=== PATIENT | female | born 1985 | race Caucasian/White ===

== ENCOUNTER 2022-09-05 18:58 | Emergency (ER) | payer OTHER, SELFPAY ==
[2022-09-05 19:10] VITALS: BP 141/96; PULSE 86; RESP 16; TEMP 36.9; O2SAT 99
--- NOTE | 2022-09-05 19:35 | ED.DENTAL ---
HPI - Dental/Oral General Chief complaint: Dental/Oral Stated complaint: tooth pain Time Seen by Provider: 09/05/22 19:35 Source: patient Mode of arrival: ambulatory Limitations: no limitations History of Present Illness HPI Narrative: 37-year-old female presents with right lower dental pain for approximately 3 weeks. Reports that her tooth broke 3 weeks ago. She had a dental appointment 2 weeks ago but she had to schedule it due to her daughter being sick. She states overnight her gums became very swollen and painful. States that she called 3 emergency dentist today but is not able to be seen. States she normally goes to [facility] in [place] Was unaware that there was a [facility] and off [facility]. All systems reviewed and negative except as noted above. Related Data Allergies Allergy/AdvReac Type Severity Reaction Status Date / Time No Known Allergies Allergy Verified 09/05/22 19:32 Review of Systems Review of Systems: CONSTITUTIONAL: Denies fever, chills, or sweats. EYES: Denies visual changes, redness, or discharge. ENT: Denies rhinorrhea, congestion, sore throat, or otalgia. Reports right lower dental pain. CARDIOVASCULAR: Denies chest pain, palpitations, or edema. RESPIRATORY: Denies cough or dyspnea. GASTROINTESTINAL: Denies abdominal pain, nausea, vomiting, or diarrhea. GENITOURINARY: Denies dysuria or hematuria. SKIN: Denies rash or itching. MUSCULOSKELETAL: Denies back pain, joint pain, or myalgia. NEUROLOGIC: Denies headache, numbness, or weakness. PSYCHIATRIC: Denies anxiety or depression. All other systems reviewed are negative, except as documented in HPI. PMFSH Comments At time of signature, agree with nursing past medical, surgical, social and family history. There is no relevant family history pertinent to the presenting complaint. Exam Narrative: GENERAL: This is a well-nourished, well-developed patient, in no apparent distress. HEAD: normocephalic, atraumatic. EYES: PERRL. Sclera clear/white. Vision is grossly intact. EARS: External ears normal NOSE: External nose normal MOUTH: tooth #3 decayed and broken down to gumline with swelling, erythema NECK: Neck supple, non-tender without lymphadenopathy, masses or thyromegaly. CARDIOVASCULAR: Regular rate and rhythm without murmurs, gallops, or rubs. RESPIRATORY: Clear to auscultation. Breath sounds equal bilaterally. No wheezes, rales, or rhonchi. SKIN: warm, Dry, intact with no suspicious lesions or rash, good texture and turgor. NEURO: awake, alert, and oriented to person, place and time. There were no obvious focal neurologic abnormalities. EXTREMITIES: No joint tenderness, effusion, or edema noted. Course Course Level of Care: Express Care Visit Vital Signs Vital signs: Vital Signs Temperature 36.9 C 09/05/22 19:10 Pulse Rate 86 09/05/22 19:10 Respiratory Rate 16 09/05/22 19:10 Blood Pressure 141/96 H 09/05/22 19:10 Pulse Oximetry 99 09/05/22 19:10 Oxygen Delivery Room Air 09/05/22 19:10 Temperature 36.9 C 09/05/22 19:10 Pulse Rate 86 09/05/22 19:10 Respiratory Rate 16 09/05/22 19:10 Blood Pressure 141/96 H 09/05/22 19:10 Pulse Oximetry 99 09/05/22 19:10 Oxygen Delivery Room Air 09/05/22 19:10 Reviewed MDM - Dental/Oral MDM Narrative Medical decision making narrative: patient instructed to follow-up with her dentist or go to the ER for any worsening of symptoms. Patient is aware of diagnosis, understands and agrees to treatment plan. Anticipatory guidance given. Patient agrees to follow-up as directed and is aware of reasons to seek care at the emergency department. Portions of this record may have been created with voice recognition software Discharge Plan Discharge Clinical Impression: Abscess, dental Patient Disposition: Home, Self-Care Condition: Stable Instructions: Antibiotic Form, Dental Abscess (ED) Additional Instructions: Take
== END 2022-09-05 19:45 | disposition home or self-care (01) ==
PROVIDERS: Emergency Provider Nurse Practitioner Family
DX: K04.7 Periapical abscess without sinus (principal)
CPT/HCPCS: 99203; G0463